=== PATIENT | male | born 2000 | race Caucasian/White ===

== ENCOUNTER 2020-05-21 13:19 | Emergency (ER) | payer BC, SELFPAY ==
--- NOTE | 2020-05-21 13:24 | ED.GENADULT ---
HPI - General Adult General Stated complaint: loss of smell/taste/congestion/cough/felder Time Seen by Provider: 05/21/20 13:24 Source: patient Mode of arrival: ambulatory Limitations: no limitations History of Present Illness HPI narrative: 20-year-old male patient presents to the [facility] with complaints of a cold with congestion for the past 5 days. Patient states that yesterday he lost his sense of taste and smell. Patient denies any chest pain, shortness of breath. Denies any abdominal pain, nausea, vomiting or diarrhea. Denies any fevers that he is aware of. Patient states has been taking [id number] Mucinex for his symptoms. Related Data Allergies Allergy/AdvReac Type Severity Reaction Status Date / Time ibuprofen Allergy Intermediate Nausea Unverified 05/02/18 18:25 amoxicillin Allergy Unknown Verified 12/10/14 10:36 banana Allergy Unknown Verified 05/02/18 18:25 latex Allergy Unknown Verified 12/10/14 10:36 peas Allergy Unknown Verified 05/02/18 18:25 Penicillins Allergy Unknown Unknown Verified 05/02/18 18:25 reaction shellfish derived Allergy Unknown Verified 05/02/18 18:25 soy Allergy Unknown Verified 05/02/18 18:25 POTASSIUM CLAVULANATE Allergy Mild Uncoded 05/02/18 18:25 [place] Allergy Unknown Uncoded 05/02/18 18:25 Review of Systems Review of Systems: Narrative: CONSTITUTIONAL: Denies fever, chills, or sweats. EYES: Denies visual changes, redness, or discharge. ENT: Positive rhinorrhea, congestion, denies sore throat, or otalgia. Positive loss of taste or smell CARDIOVASCULAR: Denies chest pain, palpitations, or edema. RESPIRATORY: Positive mild nonproductive cough, denies dyspnea. GASTROINTESTINAL: Denies abdominal pain, nausea, vomiting, or diarrhea. GENITOURINARY: Denies dysuria or hematuria. SKIN: Denies rash or itching. MUSCULOSKELETAL: Denies back pain, joint pain, or myalgia. NEUROLOGIC: Denies headache, numbness, or weakness. PSYCHIATRIC: Denies anxiety or depression. FOR[facility]LY [facility] Past Medical History Medical History (Updated 05/21/20 @ 14:04 by ANDREW Gaitan) Asthma Gastrointestinal disorder Malrotation of small intestine GERD (gastroesophageal reflux disease) Hypertension Musculoskeletal disorder Left knee pain and Slides out Rib fracture Surgical History Surgical History (Updated 05/21/20 @ 13:26 by ANDREW Gaitan) H/O adenoidectomy History of appendectomy History of tonsillectomy Hx of cholecystectomy Family History Family History Father Hypertension Grandparent Hypertension Cerebrovascular accident Carcinoma of colon Family history of malignant neoplasm of breast Diabetes mellitus Social History Social History Smoking status: Never smoker Alcohol intake: never Comments At the time of my signature I agree with nursing past medical history, surgical, social, and family history. There is no relevant family history pertinent to the presenting complaint. Exam Narrative: Exam Narrative: GENERAL: Well-appearing, well-nourished, and in no acute distress. HEAD: Normocephalic, atraumatic. EYES: PERRLA and EOMI. ENT: Nares with erythema and edema noted bilaterally, no rhinorrhea or epistaxis. Mucous membranes moist. NECK: Supple. No lymphadenopathy CHEST: Clear to auscultation. No respiratory distress. Patient able talk in clear complete sentences. No tripoding noted at this time. HEART: Regular rate and rhythm. No murmur heard. Normal peripheral pulses. ABDOMEN: Soft, nontender, nondistended, normal active bowel sounds. EXTREMITIES: Normal range of motion. No edema. SKIN: Warm, dry, no rash. NEURO: No focal deficits. Alert and oriented x3. Course Vital Signs Vital signs: Vital Signs Temperature 36.9 C 05/21/20 13:32 Pulse Rate 84 05/21/20 13:32 Respiratory Rate 16 05/21/20 13:32 Blood Pressure 162/108 H 05/21/20 13:
[2020-05-21 13:32] VITALS: BP 162/108; PULSE 84; RESP 16; TEMP 36.9; O2SAT 99
== END 2020-05-21 14:10 | disposition home or self-care (01) ==
PROVIDERS: Emergency Provider Nurse Practitioner Family; PCP Family Medicine
DX: U07.1 COVID-19 (principal); J45.909 Unspecified asthma, uncomplicated; K21.9 Gastro-esophageal reflux disease without esophagitis; I10 Essential (primary) hypertension
CPT/HCPCS: 87426; 99213; C9803; G0463

== ENCOUNTER 2023-08-23 13:02 | Outpatient (CLI) | payer BC, SELFPAY ==
--- NOTE | ~2023-08-23 | US_ITS ---
EXAMINATION: US thyroid DATE: 08/23/2023 13:20 INDICATION: Nontoxic single thyroid nodule. TECHNIQUE: Multiple ultrasound images of the thyroid were obtained. COMPARISON: None. FINDINGS: The right thyroid lobe measures 5.3 x 2.2 x 2.0 cm. The left thyroid lobe measures 5.8 x 2.5 x 2.8 c m. In the right thyroid lobe, there is a 1.8 cm solid, hypoechoic, wider than tall nodule with lobul ated margin without echogenic foci (TI-RADS TR4). In the left thyroid lobe, there is a 3.7 cm predomi nantly solid, isoechoic, wider than tall nodule with smooth margin without echogenic foci (TR3). In t he left thyroid lobe, there is an 11 mm predominantly solid, isoechoic, wider than tall nodule with s mooth margin without echogenic foci (TR3). In the right thyroid lobe, there is a 1.3 cm solid, isoech oic, wider than tall nodule with smooth margin without echogenic foci (TR3). IMPRESSION: 1. Multinodular goiter. Ultrasound-guided fine-needle aspiration of the 1.8 cm right thyroid nodule a nd 3.7 cm left thyroid nodule is recommended. Reviewed, dictated and finalized at location E. IMPRESSION: 1. Multinodular goiter. Ultrasound-guided fine-needle aspiration of the 1.8 cm right thyroid nodule and 3.7 cm left thyroid nodule is recommended.
== END 2023-08-23 13:03 ==
LOC: GOSHIMG 13:03
PROVIDERS: PCP Family Medicine; Visit Provider Internal Medicine Endocrinology, Diabetes & Metabolism
DX: E04.2 Nontoxic multinodular goiter (principal)
CPT/HCPCS: 76536

== ENCOUNTER 2024-02-21 11:11 | Outpatient (CLI) | payer BC, SELFPAY ==
--- NOTE | ~2024-02-21 | US_ITS ---
EXAMINATION: US THYROID BIOPSY right and left DATE: 02/21/2024 18:58 CDT INDICATION: TIRADS 4 nodules bilaterally TECHNIQUE: The procedure for biopsy of the thyroid nodule and its benefits and risks were explained to the patie nt. Potential risk included were not limited to bleeding, infection, and nondiagnostic specimen. The right neck was prepped and draped in the usual sterile manner. 3 cc 1% lidocaine was used for lo saida anesthesia. [3 passes were made with a 25G needle into the right thyroid lesion. Appropriate ne edle location was documented with continuous sonographic guidance. The specimens were passed to the cytopathologist in the room for the procedure. The left neck was prepped and draped in the usual sterile manner. 3 cc 1% lidocaine was used for loc al anesthesia. 4[ passes were made with a 25G needle into the left thyroid lesion. Appropriate need le location was documented with continuous sonographic guidance. The specimens were passed to the cy topathologist in the room for the procedure. Once adequacy of the specimens were confirmed with the pathologist, needles were removed and a steril e bandages applied over the biopsy sites. The patient tolerated both procedures without immediate co mplications or complaints. FINDINGS: Ultrasound images demonstrate the biopsy needles advanced into the bilateral nodules. IMPRESSION: Technically successful ultrasound guided biopsy of right-sided thyroid nodule. Technically successful ultrasound guided biopsy of left-sided thyroid nodule. Please refer to pathology report for final histologic analysis. Reviewed, dictated and finalized at location A. IMPRESSION: Technically successful ultrasound guided biopsy of right-sided thyroid nodule. Technically successful ultrasound guided biopsy of left-sided thyroid nodule. Please refer to pathology report for final histologic analysis.
== END 2024-02-21 11:12 | disposition home or self-care (01) ==
LOC: ANHIMG 11:14
PROVIDERS: PCP Family Medicine; Visit Provider Internal Medicine Endocrinology, Diabetes & Metabolism
DX: E04.2 Nontoxic multinodular goiter (principal); R93.89 Abnormal findings on diagnostic imaging of other specified body structures
CPT/HCPCS: 10005; 10006; 88172; 88173; 88177; 88305